=== PATIENT | female | born 1950 | race Caucasian/White ===

== ENCOUNTER → 2016-10-05 | Outpatient (CLI) | payer MEDICARE, BC ==
--- NOTE | 2016-10-05 18:19 | MAM ---
History: Well woman exam. Date of exam: 10/05/2016 Services provided: Bilateral full field digital screening mammography. CAD, the images were reviewed with R2 computer aided detection. FINDINGS: Glandular tissue is scattered glandular contour. Focal mammographic asymmetry right breast 12:00 approximately 11 cm from the nipple and left breast 1:00. IMPRESSION: Incomplete exam Recommendation: True lateral and spot compression views. Ultrasound evaluation if appropriate. Please indicate location of surgical intervention on the additional views. BIRAD CATEGORY: 0 INCOMPLETE Electronically signed by: Kari Mckinley MD 10/05/2016 6:18 PM CDT Workstation: [id number]
== END ==
LOC: MAMMO 08:35
PROVIDERS: ATTEND Obstetrics & Gynecology
DX: Z12.31 Encounter for screening mammogram for malignant neoplasm of breast (principal)

== ENCOUNTER → 2016-10-15 | Outpatient (CLI) | payer MEDICARE, BC ==
--- NOTE | 2016-10-16 12:46 | MAM ---
EXAM DESCRIPTION: Diagnostic Mammo, bilateral CLINICAL HISTORY: 66 yearsFemaleABNORMAL MAMMO previous bilateral breast biopsies. Left breast August 2013. Two on the right breast in 2003 and 2012. COMPARISON: Digital screening bilateral examination 10/05/2016 and 10/02/2015 and 08/21/2014. Digital diagnostic right breast examination 05/02/2013. TECHNIQUE: Digital bilateral full field LM images. Digital bilateral orthogonal spot compression of the posterior third of the breast upper half. Skin markers indicating prior biopsy sites were placed. CAD was utilized. FINDINGS: Bilateral overall parenchymal breast density pattern is scattered fibroglandular densities. Densities with irregular indistinct spiculated borders are noted in the posterior thirds of both breasts more superior and adjacent to skin markers indicating biopsy sites. Biopsy localization clip also noted abutting the right breast density. Scattered groups and solitary microcalcifications in the remainder of both breasts. No skin thickening or nipple retraction. Irregular densities associated with skin biopsy sites appear stable dating back to August 2014. IMPRESSION: BI-RADS CATEGORY: 2 - BENIGN FINDINGS. FOLLOW UP: Return to routine digital bilateral screening, one year interval from October 2016. Written communication explaining the findings and follow-up, will be mailed to the patient and referring health care provider. According to the [employer], yearly mammograms are recommended starting at age 40 and continuing as long as a woman is in good health. Any breast change noted on a breast self-exam should be reported promptly to the patient's healthcare provider. Breast MRI is recommended for women with an approximately 20-25% or greater lifetime risk of breast cancer, including women with a strong family history of breast or ovarian cancer and women who have been treated for Hodgkin's disease. A negative mammographic report should not delay tissue diagnosis in patients with significant clinical history or physical findings. Extremely dense breast tissue limits the sensitivity of digital mammography.. Electronically signed by: Lc Romero MD 10/16/2016 12:44 PM CDT Workstation: [id number]
== END ==
LOC: MAMMO 13:27
PROVIDERS: ATTEND Obstetrics & Gynecology
DX: R92.8 Other abnormal and inconclusive findings on diagnostic imaging of breast (principal)

== ENCOUNTER → 2016-12-31 | Outpatient (CLI) | payer MEDICARE, BC | END | disposition home or self-care (01) | LOC: LAB.O 09:31 | PROVIDERS: ATTEND Obstetrics & Gynecology | DX: I10 Essential (primary) hypertension (principal) ==

== ENCOUNTER → 2017-02-01 | Outpatient (CLI) | payer MEDICARE, BC | END | disposition home or self-care (01) | LOC: LAB.O 09:15 | PROVIDERS: ATTEND Obstetrics & Gynecology | DX: M85.80 Other specified disorders of bone density and structure, unspecified site (principal) ==

== ENCOUNTER → 2017-10-14 | Outpatient (CLI) | payer MEDICARE, BC ==
--- NOTE | 2017-10-18 08:41 | MAM ---
EXAM DESCRIPTION: 3D Screening BILATERAL : Digital Mammography. CLINICAL HISTORY: 67 years Female SCREENING . No complaints. Remote family history of breast cancer. Postmenopausal. Childbirth. As taken HRT. Bilateral breast biopsies.. COMPARISON: 2-D digital screening bilateral mammography 10/05/2016. Bilateral digital diagnostic mammography 10/15/2016. Reports from prior examinations also reviewed. TECHNIQUE: Bilateral CC and MLO projection full-field images, 3-D tomosynthesis digital mammographic technique. CAD not utilized. FINDINGS: The breast parenchymal density pattern is: Scattered areas of fibroglandular density. No skin thickening or nipple retraction. Again noted are bilateral areas of focal asymmetry associated with prior biopsy sites at the 1200 clock position of the posterior third of the right breast in the 130 clock position of the left breast in the posterior third. Biopsy markers are visible adjacent to these sites. Scattered solitary microcalcifications. No new focal, stellate mass or density, focal asymmetry , and no suspicious microcalcifications bilaterally. Stable mammograms compared to prior study, taking into account differences in mammographic technique. IMPRESSION: BI-RADS CATEGORY: 2 - BENIGN FINDINGS. FOLLOW UP: Routine digital bilateral screening, one year interval from October 2017. Written communication explaining the IMPRESSION and follow-up, will be mailed to the patient and referring health care provider. According to the [employer], yearly mammograms are recommended starting at age 40 and continuing as long as a woman is in good health. Any breast change noted on a breast self-exam should be reported promptly to the patient's healthcare provider. Breast MRI is recommended for women with an approximately 20-25% or greater lifetime risk of breast cancer, including women with a strong family history of breast or ovarian cancer and women who have been treated for Hodgkin's disease. A negative mammographic report should not delay tissue diagnosis in patients with significant clinical history or physical findings. Extremely dense breast tissue limits the sensitivity of digital mammography. Electronically signed by: Lc Romero MD 10/18/2017 8:39 AM CDT
== END ==
LOC: MAMMO 10:34
PROVIDERS: ATTEND Obstetrics & Gynecology
DX: Z12.31 Encounter for screening mammogram for malignant neoplasm of breast (principal)

== ENCOUNTER 2018-05-27 05:35 | Day surgery (SDC) | payer MEDICARE, OTHER ==
[2018-05-27] MEDS ORDERED: LIDOCAINE 1% 10 ML VIAL INJ ONE (07:00)
[2018-05-27] MEDS ORDERED: PROPOFOL 200 MG/20 ML VIAL IV ONE (07:00)
[2018-05-27] MEDS ORDERED: LACTATED RINGERS 1,000 ML ONE (07:08)
[2018-05-27 09:42] VITALS: BP 135/74; TEMP 98; O2SAT 99
--- NOTE | 2018-05-27 10:38 | OP ---
DATE OF PROCEDURE: 05/27/18 PREPROCEDURE DIAGNOSIS: 1. Colorectal cancer screening. POSTPROCEDURE DIAGNOSIS: 1. Internal hemorrhoids. PROCEDURE: 1. Colonoscopy. SURGEON: Jayson Wheeler MD COMPLICATIONS: No immediate complications. SEDATION: The patient was sedated via IV propofol by the Anesthesia Department. CONSENT: Prior to the procedure, risks, benefits and alternatives to the therapy were discussed with the patient. The risks included bleeding, infection, perforation and . The patient agreed to the procedure and signed a consent. PREPROCEDURE ANESTHESIA ASSESSMENT: Mallampati class type 2, ASA grade assessment type 2. PROCEDURE: The patient was placed in the left lateral decubitus position and a rectal examination was performed. The rectal examination was within normal limits. The Olympus colonoscope was passed in the anus, rectum, traversing the colon to the level of the cecum as identified by the appendiceal orifice. The scope was retracted and the mucosa was visualized. The entirety of the exam was performed under direct visualization. Retroflexion was performed in the rectum. Preparation quality was good. The withdrawal time was greater than 6 minutes. The patient tolerated the procedure well. FINDINGS: 1. Non-bleeding internal hemorrhoids, medium sized, were found on retroflexion. 2. Otherwise the examination of the colon was grossly unremarkable. 3. Normal terminal ileum. RECOMMENDATION: 1. Return the patient home. 2. Resume previous diet. 3. Repeat colonoscopy in 10 years for screening purposes. 4. Primary care physician may check FIT/Cologuard in 3 years' time. 5. Return to my office p.r.n. 6. All findings were discussed with the patient and family members. #[id number] MTDD
== END 2018-05-27 11:20 | disposition home or self-care (01) ==
LOC: AMB 05:35
PROVIDERS: ATTEND Internal Medicine Gastroenterology
DX: Z12.11 Encounter for screening for malignant neoplasm of colon (principal); K64.8 Other hemorrhoids; I10 Essential (primary) hypertension; Z79.899 Other long term (current) drug therapy
CPT/HCPCS: 00812; G0121; J3490; J7120

== ENCOUNTER → 2018-10-18 | Outpatient (CLI) | payer MEDICARE, OTHER ==
--- NOTE | 2018-10-19 19:16 | MAM ---
EXAM DESCRIPTION: 3D Screening BILATERAL : Digital Mammography. CLINICAL HISTORY: 68 years Female ANNUAL SCREENING . No complaints. Prior benign breast biopsies. No personal history of breast cancer. Remote family history of breast cancer. Childbirth. Postmenopausal. HRT 5 or more years ago. Lifetime risk of developing breast cancer (Tyrer-Cuzick model)(%): 12.5. COMPARISON: Bilateral screening digital breast tomosynthesis 10/14/2017. TECHNIQUE: Bilateral CC and MLO projection full-field images, digital tomosynthesis mammographic technique. Bilateral digital 2-D full-field MLO images. CAD not available for tomosynthesis or 2-D images. FINDINGS: The breast parenchymal density pattern is: Scattered areas of fibroglandular density. No skin thickening or nipple retraction. Bilateral scattered calcifications. Again noted is large region of focal asymmetry containing dense and radiolucent elements with spiculation in the posterior third of the right breast at the 12:00 position. Small calcifications. Stable since the prior study. Group of benign type calcifications in the middle third upper outer quadrant right breast also appears stable. Architectural distortion in the posterior left breast upper outer quadrant near the chest wall may represent prior biopsy scar and is stable since the prior study. Focal asymmetry in the medial aspect of the middle third of the left breast is also stable. No new focal, stellate mass or density, focal asymmetry , and no suspicious microcalcifications bilaterally. Stable mammograms compared to prior study. IMPRESSION: Benign exam. BIRAD CATEGORY: 2 BENIGN FINDINGS. RECOMMENDATIONS: FOLLOW UP: Routine digital bilateral mammographic screening, one year interval from October 2018. Written communication explaining the IMPRESSION and follow-up, will be mailed to the patient and referring health care provider. According to the [employer], yearly mammograms are recommended starting at age 40 and continuing as long as a woman is in good health. Any breast change noted on a breast self-exam should be reported promptly to the patient's healthcare provider. Breast MRI is recommended for women with an approximately 20-25% or greater lifetime risk of breast cancer, including women with a strong family history of breast or ovarian cancer and women who have been treated for Hodgkin's disease. A negative mammographic report should not delay tissue diagnosis in patients with significant clinical history or physical findings. Extremely dense breast tissue limits the sensitivity of digital mammography. Electronically signed by: Lc Romero MD 10/19/2018 7:13 PM CDT
== END ==
LOC: MAMMO 08:00
PROVIDERS: ATTEND Obstetrics & Gynecology
DX: Z12.31 Encounter for screening mammogram for malignant neoplasm of breast (principal)

== ENCOUNTER 2019-04-06 19:03 | Emergency (ER) | payer MEDICARE, OTHER ==
[2019-04-06 19:33] VITALS: O2SAT 97
--- NOTE | 2019-04-06 20:00 | ED.PDOC ---
History of Present Illness - General Chief Complaint: Syncope/Near Syncope Stated Complaint: "dizzy" Time Seen by Provider: 04/06/19 19:04 - History of Present Illness Initial Comments: Patient presents for evaluation of lightheadedness and dizziness after starting atenolol. She states that she feels like she is going to pass out when she ambulates. She denies any chest pain, SOB, nausea, vomiting, abdominal pain, headaches, vision changes or weakness in the extremities. She denies recent travel, recent surgeries, hormone replacement, or hx of blood clots. She otherwise denies any complaints. Allergies/Adverse Reactions: Allergies NO KNOWN ALLERGY Allergy (Verified 04/06/19 19:22) Home Medications: Ambulatory Orders RX: Atenolol 25 mg PO DAILY 01/31/13 Review of Systems - Review of Systems Constitutional: Denies: chills, fever EENTM: Denies: double vision Respiratory: Denies: short of breath Cardiology: Denies: chest pain Gastrointestinal/Abdominal: Denies: abdominal pain Musculoskeletal: Denies: neck pain Skin: Denies: rash Neurological: Denies: headache, numbness, weakness Hematologic/Lymphatic: Denies: blood clots Past Medical History (General) - Patient Medical History Hx Congestive Heart Failure: No Hx Diabetes: No Hx MRSA: No Surgical History: Hysterectomy - Vaccination History Hx Tetanus, Diphtheria Vaccination: No Hx Influenza Vaccination: No Hx Pneumococcal Vaccination: No Immunizations Up to Date: No - Social History Hx Tobacco Use: No Hx Alcohol Use: No Family Medical History - Family History Mother Hx Family Hypertension: Yes Physical Exam - Physical Exam General Appearance: Alert, Comfortable, No apparent distress, Well Developed, Well Groomed, Well Hydrated, Well Nourished Eye Exam: bilateral normal Ears, Nose, Throat: hearing grossly normal Neck: full range of motion, supple, normal inspection Respiratory: lungs clear, normal breath sounds, no respiratory distress, no accessory muscle use Cardiovascular/Chest: normal peripheral pulses, regular rate, rhythm, no edema, no gallop, no JVD Peripheral Pulses: radial,right: 2+, radial,left: 2+, dorsalis pedis,right: 2+, dorsalis pedis,left: 2+, posterior tibialis,right: 2+, posterior tibialis,left: 2+ Gastrointestinal/Abdominal: non tender, soft Extremity: normal inspection, no pedal edema, no calf tenderness Neurologic: drama director II-XII nml as tested, no motor/sensory deficits, alert, normal mood/affect, oriented x 3, other - No dysmetria with finger to nose. No pronator drift. 5/5 strength in extremities. Sensation intact in all extremities. Progress - Progress Progress: Patient presented for evaluation of near syncope. She had no focal neurologic deficits on examination. EKG was not significant for signs of ischemic changes, arrhythmia or signs of heart block. Troponin was WNL. CBC was not significant for signs of anemia. CMP was not significant for hypoglycemia or electrolyte derangement. Symptoms were suggestive of dehydration. CXR was not signficant for mediastinal changes. She was feeling better after a liter of IV fluids. Given no headache, no neurologic symptoms and no neurologic deficits, CT head was not obtained. Patient was feeling better and felt comfortable with discharge home. Will follow-up with PCP for re-evaluation. - Results/Orders Results/Orders: CXR: NAD 04/06/19 19:45 EKG STAT Laboratory Results WBC 6.9 K/mm3 (4.8-10.8) 04/06/19 19:55 RBC 4.40 M/mm3 (4.20-5.40) 04/06/19 19:55 Hgb 13.9 gm/dL (12.0-16.0) 04/06/19 19:55 Hct 41.6 % (36.0-47.0) 04/06/19 19:55 MCV 94.4 fl (81.0-99.0) 04/06/19 19:55 MCH 31.5 pg (27.0-31.0) H 04/06/19 19:55 MCHC 33.3 g/dL (33.0-37.0) 04/06/19 19:55 RDW 14.0 % (11.5-14.5) 04/06/19 19:55 Plt Count 197 K/mm3 (130-400) 04/06/19 19:55 MPV 9.3 fl (7.40-10.4) 04/06/19 19:55 Absolute Neuts (auto) 4.60 K/uL (1.8-6.8) 04/06/19 19:55 Absolute Lymphs (auto) 1.50 K/uL (1.0-3.4) 04/06/19 19:55 Absolute Monos (auto) 0.50 K/uL (0.2-0.8) 04/06/19 19:55 Absolute Eos (auto) 0.30 K/uL (0.0-0.4) 04/06/19 19:55 Absolute Basos (auto) 0.00 K/uL (0.0-0.1) 04/06/19 19:55 Neutrophils % 66.3 % (42.0-78.0) 04/06/19 19:55 Lymphocytes % 22.4 % (20.0-50.0) 04/06/19 19:55 Monocytes % 7.1 % (2.0-9.0) 04/06/19 19:55 Eosinophils % 3.7 % (1.0-5.0) 04/06/19 19:55 Basophils % 0.5 % (0.0-2.0) 04/06/19 19:55 Sodium 139 mmol/L (135-145) 04/06/19 19:55 Potassium 3.5 mmol/L (3.6-5.0) L 04/06/19 19:55 Chloride 99 mmol/L (101-111) L 04/06/19 19:55 Carbon Dioxide 31 mmol/L (21-31) 04/06/19 19:55 Anion Gap 12.5 (12-18) 04/06/19 19:55 BUN 10 mg/dL (7-18) 04/06/19 19:55 Creatinine 0.72 mg/dL (0.6-1.3) 04/06/19 19:55 BUN/Creatinine Ratio 13.9 (10-20) 04/06/19 19:55 Random Glucose 114 mg/dL (70-105) H 04/06/19 19:55 Serum Osmolality 277.4 mOsm/L (275-295) 04/06/19 19:55 Calcium 9.7 mg/dL (8.4-10.2) 04/06/19 19:55 Total Bilirubin 0.6 mg/dL (0.2-1.0) 04/06/19 19:55 AST 26 IU/L (10-42) 04/06/19 19:55 ALT 21 IU/L (10-60) 04/06/19 19:55 Alkaline Phosphatase 53 IU/L (42-121) 04/06/19 19:55 Troponin I < 0.02 ng/mL (0.01-0.05) 04/06/19 19:55 Serum Total Protein 7.4 gm/dL (6.4-8.2) 04/06/19 19:55 Albumin 3.9 g/dl (3.2-5.5) 04/06/19 19:55 Globulin 3.5 gm/dL (2.3-3.5) 04/06/19 19:55 Albumin/Globulin Ratio 1.1 (1.1-1.9) 04/06/19 19:55 - EKG/XRAY/CT EKG: Sinus - NSR with rate of 64bpm. No ST changes. Normal axis and intervals Departure - Departure Clinical Impression: Near syncope, Dehydration Time of Disposition: 21:47 Disposition: Discharge to Home or Self Care Condition: Fair Departure Forms: ED Discharge - Pt. Copy, Patient Portal Self Enrollment Instructions: DI for Syncope in Adults (Fainting), Dehydration, Adult (DC) Referrals: Karlos Marrero MD [Primary Care Provider] - 1-2 Days Home Medications: Ambulatory Orders RX: Atenolol 25 mg PO DAILY 01/31/13
[2019-04-06] MEDS: SODIUM CHLORIDE 0.9% 1000ML 1,000 ML IVS ONE (20:40)
--- NOTE | 2019-04-06 21:17 | RAD ---
EXAM DESCRIPTION: Chest,2 Views CLINICAL HISTORY: 69 years Female, Near syncope COMPARISON: Chest radiograph 01/30/2013 TECHNIQUE: 2 view radiograph of the chest. IMPRESSION: Normal size cardiac silhouette. Partially calcified aorta. No lobar consolidation. No pleural effusion or pneumothorax. Thoracic spondylosis and moderate kyphosis of the mid thoracic spine. Electronically signed by: Brent Sutton MD 04/06/2019 9:15 PM [employer]
[2019-04-06 22:28] VITALS: BP 157/79; TEMP 97
== END 2019-04-06 22:05 | disposition home or self-care (01) ==
LOC: ER 19:03
DX: R55 Syncope and collapse (principal); E86.0 Dehydration; Z79.899 Other long term (current) drug therapy
CPT/HCPCS: 71046; 80053; 84484; 85025; 93005; J7030

== ENCOUNTER 2019-04-14 23:58 | Emergency (ER) | payer MEDICARE, OTHER ==
[2019-04-15 00:47] VITALS: BP 154/70
--- NOTE | 2019-04-15 00:55 | ED.PDOC ---
History of Present Illness - General Chief Complaint: Blood Pressure Problem Stated Complaint: elevated BP Time Seen by Provider: 04/15/19 00:03 Source: patient Exam Limitations: no limitations - History of Present Illness Initial Comments: the patient is a 69-year-old female presenting to the emergency room secondary to concerns over her hypertension. She has been keeping something of a blood pressure diary over the last 2 weeks. For the most part her systolic blood pressures are in the 140s to 160s. Tonight she had 2 that approached 200. aside from being anxious about the blood pressure she had no symptoms. no chest pain or shortness of breath. No obvious arrhythmia. Blood pressures on the systolic and did come down to the 140s with relaxation prior to discharge. The patient has been taking atenolol 25 mg in the morning. No other medications are being taken. Timing/Duration: 1/2 hour Severity: mild Improving Factors: nothing Worsening Factors: nothing Associated Symptoms: denies symptoms Allergies/Adverse Reactions: Allergies NO KNOWN ALLERGY Allergy (Verified 04/06/19 19:22) Home Medications: Ambulatory Orders Atenolol 25 mg PO DAILY 01/31/13 Review of Systems - Review of Systems Constitutional: States: no symptoms reported EENTM: States: no symptoms reported Respiratory: States: no symptoms reported Cardiology: States: no symptoms reported Gastrointestinal/Abdominal: States: no symptoms reported Genitourinary: States: no symptoms reported Musculoskeletal: States: no symptoms reported Skin: States: no symptoms reported Neurological: States: no symptoms reported Endocrine: States: no symptoms reported All other Systems: No Change from Baseline Past Medical History (General) - Patient Medical History Hx Congestive Heart Failure: No Hx Diabetes: No Hx MRSA: No - Vaccination History Hx Tetanus, Diphtheria Vaccination: No Hx Influenza Vaccination: No Hx Pneumococcal Vaccination: No - Social History Hx Tobacco Use: No Hx Alcohol Use: No Family Medical History - Family History Mother Family History: Unknown Hx Family Hypertension: Yes Physical Exam - Physical Exam General Appearance: Alert, Comfortable, No apparent distress Eye Exam: bilateral normal Ears, Nose, Throat: hearing grossly normal, normal ENT inspection Neck: full range of motion, supple Respiratory: lungs clear, normal breath sounds, no respiratory distress, no accessory muscle use Cardiovascular/Chest: normal peripheral pulses, regular rate, rhythm, no edema Peripheral Pulses: radial,right: 2+, radial,left: 2+ Gastrointestinal/Abdominal: non tender, soft Rectal Exam: deferred Back Exam: no CVA tenderness, no vertebral tenderness Extremity: non-tender, normal inspection, no pedal edema, normal capillary refill Neurologic: parquet floor layer II-XII nml as tested, alert, normal mood/affect, oriented x 3 Skin Exam: normal color Comments: Vital Signs - 24 hr 04/15/19 04/15/19 00:41 00:46 Temperature 97 F L 97 F L Pulse Rate [ 67 65 left] Respiratory 20 20 Rate Blood Pressure 175/74 154/70 [left] O2 Sat by Pulse 99 99 Oximetry Progress - Progress Progress: 04/15/19 00:57 the patient's a 69-year-old female presenting to the emergency room primarily due to concern over periodic blood pressure spikes such as tonight. Blood pressures did return to normal simply with relaxation here. I would encourage her to continue her current atenolol dose. I would also encourage her to record her blood pressure 3 or 4 times a day when she is relaxed at different times of the day and write down the actual times that the blood pressures were taken to see if a trend can be found for when the blood pressures are spiking. As for the mild dizziness she has been having over the last week or so, I would recommend that she take a half of a Zyrtec, that is 5 mg at night each night for the next week to help reduce any symptoms from any recent cold. No focal neurological deficits have been found. The patient should follow back up with her primary care doctor next week. The patient should return to the emergency room for any significant acute worsening. [email or web address] shaikh [id number] Departure - Departure Clinical Impression: Anxiety about health Hypertension Qualifiers: Hypertension type: unspecified Qualified Code(s): I10 - Essential (primary) hypertension Disposition: Discharge to Home or Self Care Condition: Fair Departure Forms: ED Discharge - Pt. Copy, Patient Portal Self Enrollment Diet: low salt diet Activity: increase activity as tolerated Referrals: Karlos Marrero MD [Primary Care Provider] - 1-5 Days Home Medications: Ambulatory Orders Atenolol 25 mg PO DAILY 01/31/13 Additional Instructions: the patient's a 69-year-old female presenting to the emergency room primarily due to concern over periodic blood pressure spikes such as tonight. Blood pressures did return to normal simply with relaxation here. I would encourage her to continue her current atenolol dose. I would also encourage her to record her blood pressure 3 or 4 times a day when she is relaxed at different times of the day and write down the actual times that the blood pressures were taken to see if a trend can be found for when the blood pressures are spiking. As for the mild dizziness she has been having over the last week or so, I would recommend that she take a half of a Zyrtec, that is 5 mg at night each night for the next week to help reduce any symptoms from any recent cold. No focal neurological deficits have been found. The patient should follow back up with her primary care doctor next week. The patient should return to the emergency room for any significant acute worsening.
[2019-04-15] MEDS ORDERED: DEX 5% W/NACL 0.45% 1000ML 1,000 ML IVS ONE (00:58)
[2019-04-15 01:33] VITALS: TEMP 97.2; O2SAT 97
== END 2019-04-15 01:15 | disposition home or self-care (01) ==
LOC: ER 23:58
DX: I10 Essential (primary) hypertension (principal); F06.4 Anxiety disorder due to known physiological condition; Z79.899 Other long term (current) drug therapy

== ENCOUNTER → 2020-03-11 | Outpatient (CLI) | payer MEDICARE, OTHER | LOC: LAB.O 09:13 | PROVIDERS: ATTEND Obstetrics & Gynecology | DX: Z79.899 Other long term (current) drug therapy (principal); I10 Essential (primary) hypertension; Z13.220 Encounter for screening for lipoid disorders ==

== ENCOUNTER → 2020-04-12 | Outpatient (CLI) | payer MEDICARE, OTHER | LOC: GMA MATASK 12:33 | PROVIDERS: ATTEND Family Medicine | DX: D51.8 Other vitamin B12 deficiency anemias (principal); R53.83 Other fatigue ==